=== PATIENT | female | born 1985 | race Caucasian/White ===

== ENCOUNTER 2018-05-17 15:52 | Inpatient (IN) ==
[2018-05-17] MEDS ORDERED: Melatonin 5 MG Tablet PO PRN (22:29)
[2018-05-17] MEDS ORDERED: Acetaminophen 325 MG Tablet PO PRN ×2 (22:37)
[2018-05-17] MEDS ORDERED: Aluminum/Magnesium/Simethacone Susp 30 ML UDC PO PRN (22:39)
[2018-05-18 09:55] LABS: Calcium 9.7 mg/dL (8.5-10.1); Carbon Dioxide 24.7 meq/L (21.0-32.0); Potassium 3.5 meq/L (3.5-5.1)
[2018-05-18 10:02] LABS: Chol/HDL Ratio 3.62 Ratio; HDL Cholesterol 55.7 mg/dL (40.0-60.0)
--- NOTE | 2018-05-18 14:23 | P.HPPSY ---
Provisional Diagnosis Admission Date: May 17, 2018 22:10 Anxiety disordergeneralized [place] I.: Generalized anxiety disorder Competence Certification of Person's Competence To Provide Express and Informed Consent I have personally examined Sheron Charles, a person being served at [facility] on, May 18, 2018 1323. Express and informed consent means consent voluntarily given in writing, by a competent person, after sufficient explanation and disclosure of the subject matter involved to enable the person to make a knowing and willful decision without any element of force, fraud, deceit, duress, or other form of constraint or coercion. This person is 18 years of age or older, is not now known to be incompetent to consent to treatment with a guardian advocate, and does not have a health care surrogate or proxy currently making medical treatment decisions. I have found this person to be one of the following: [] Competent to provide express and informed consent, as defined above, for voluntary admission to this facility and is competent to provide express and informed consent for treatment. He/she has the consistent capacity to make well reasoned, willful, and knowing decisions concerning his or her medical or mental health treatment. The person fully and consistently understands the purpose of the admission for examination/placement and is fully capable of personally exercising all rights assured [place] [] Incompetent to provide express and informed consent to voluntary admission, and this is incompetent to provide express and informed consent to treatment. The person must be transferred to involuntary status and a petition for a guardian advocate filed with the Circuit Court. [] Refusing to provide express and informed consent to voluntary admission but is competent to provide express and informed consent for treatment. The person must be discharged or transferred to involuntary status. Form shall be completed within 24 hours of a person's arrival at the receiving facility and filed in the clinical record of each person: 1. Admitted on a voluntary basis 2. Permitted to provide express and informed consent to his/her own treatment 3. Allowed to transfer from involuntary to voluntary status 4. Prior to permitting a person to consent to his or her own treatment after having been previously found incompetent to consent to treatment. History of Present Illness Capacity: Has capacity Chief Complaint: Severe acute anxiety and suicidal ideation and a plan History of Present Illness: HPI 32-year-old single female presents with severe acute anxiety and depressed mood with some thoughts and plan for suicide. Question of spontaneous interruption of versus other causes for an elevated beta hCG and removal of an IUD with a sonogram that does not show signs of a . Adnexa show no tumor. Patient presented to the ED and was admitted to [facility] for removal of the IUD and observation. Patient presented with complaints of chest tightness shortness of breath palpitations hot cold sweats. The patient was brought in some neck and anorectic. Problem had been present for several weeks and has been getting worse. At work the patient was promised a promotion with a shift that would allow her time with her 6-year-old son. Patient became increasingly depressed when this promotion did not allow for the shift that she was promised. She now complains that she does not trust management. The patient has been self-medicating with her mom's Cymbalta and has experienced no relief. She complains that nothing that formerly made her happy or that she enjoyed doing in the past was of interest to her. The depression has been progressive in the management of her anxiety, depressed mood, insomnia and anorexia has not improved. She claims that she told the ED that she had looked up the lethal dose of Cymbalta only because she did not want to overdose. An anxiety attack is typified by chest pain, diaphoresis, shortness of breath, palpitations increased thoughts of depression and self-harm and and anhedonia. In addition to other problems patient has concerned that her boyfriend is unwilling to make a commitment. The patient is anxious to discharge for concerned that her son misses her. With all of her recent problems she is happy that he continues doing well in school. She is concerned that if she is away from him for any protracted period of time it may affect his performance in school. Past History: Patient presents no medical problems in her past history of being on her current problems with possible . Past surgical history the patient has a cholecystectomy and and surgery to the left circumflex shoulder Patient denies any prior psychiatric history FH: Patient reports no significant family history of psychiatric or physical chronic illnesses. Denies diabetes in the family Social history: patient does occasionally smoke she does not report any drug use or alcohol use. She lives with her boyfriend and her 6-year-old son. - Inpatient Certification I certify that the inpatient services were ordered in accordance with Medicare regulations governing the order. This includes certification that hospital inpatient services are reasonable and necessary and in the case of services not specified as inpatient-only under 42 CFR 419.22(n), that they are appropriately provided as inpatient services in accordance to with the 2-midnight benchmark under 43 CFR 412.3(e) I certify that inpatient psychiatric hospital services are medically necessary. Evaluation and treatment and/or diagnostic testing are expected to improve the patient's condition. The patient needs on a daily basis, active treatment furnished directly by or requiring the supervision of inpatient psychiatric facility personnel. Review of Systems Constitutional: Reports anorexia, Reports fatigue, Reports night sweats Cardiovascular: Reports chest pain, Reports chest pain at rest, Reports excessive sweating, Reports rapid, pounding, or irregular heartbeat, Reports shortness of breath Respiratory: Reports shortness of breath Psychiatric: Reports abnormal sleep pattern, Reports anxiety, Reports change in appetite, Reports lack of enjoyment, Reports panic attacks, Reports thoughts of hurting/killing yourself PMFSH - History History Provided By: Patient - Social History I have reviewed the patient's Social History: Yes - Tobacco History Second Hand Smoke Exposure: No Tobacco Use In Past 30 Days: Yes Smoking Status: Smoker, status unknown - Alcohol History How Often Do You Have a Drink Containing Alcohol: Never - Substance Use History Substance History: No History of Abuse - Travel History History of Recent Travel: No Recent Travel in the [place] Within the Last 8 Weeks: No Recent Travel Out of the Country Within the Last 8 Weeks: No Quality Measures - Psychiatric History Psychological trauma history: Patient denies any history of abuse - Substance Abuse History Drug or alcohol use in the past 12 months: Patient denies use of alcohol or illicit substances. She does occasionally smokes tobacco - Patient Strengths Patient's strengths (minimum of 2): Patient had a a positive relationship with her son who is performing well in school. She has support from her mother and her boyfriend and is currently working Medications and Allergies Active Medications: Active Medications Acetaminophen (Tylenol) 650 mg PO Q4H PRN PRN Reason: PAIN SCALE 1 TO 5 Acetaminophen (Tylenol) 650 mg PO Q4H PRN PRN Reason: TEMP GREATER THAN 101 Al Hydrox/Mg Hydrox/Simethicone (Mag-Al Plus Susp Liq) 30 ml PO Q6H PRN PRN Reason: DYSPEPSIA Al Hydroxide/Mg Hydroxide (Milk Of Magnesia Liq) 30 ml PO DAILY PRN PRN Reason: CONSTIPATION Melatonin (Melatonin) 5 mg PO HS PRN PRN Reason: INSOMNIA Last Admin: 05/17/18 22:43 Dose: 5 mg Allergies Allergy/AdvReac Type Severity Reaction Status Date / Time No Known Allergies Allergy Unverified 05/17/18 22:32 Results - Labs CBC & Chem 7: 05/18/18 09:15 Labs: Laboratory Results - last 24 hr 05/18/18 05/18/18 09:15 09:15 Sodium 138 Potassium 3.5 Chloride 104 Carbon Dioxide 24.7 Anion Gap 9 BUN 9 Creatinine 0.90 Estimated GFR 73 L Random Glucose 110 H Calcium 9.7 Triglycerides 113 Cholesterol 202 H LDL Cholesterol, Calc 124 H HDL Cholesterol 55.7 Cholesterol/HDL Ratio 3.62 Beta HCG, Qual 11.1 H Exam Vital signs: Vital Signs 05/17/18 23:21 05/18/18 05:51 Temperature 98 F 97.7 F Pulse Rate 77 68 Respiratory Rate 18 16 Blood Pressure 132/77 110/71 Pulse Oximetry 98 100 Intake & Output 05/17/18 05/18/18 05/18/18 18:59 06:59 18:59 Intake Total 480 / 480 Balance 480 / 480 Weight 65.3 kg Intake: Oral 480 / 480 Other: Weight On Admission 65.3 kg Narrative: Patient had a physical examination at [facility] prior to transfer which showed no significant contributory physical contributions to the present illness. Patient shows no signs of neurological deficit. Aims score is 0. - Constitutional severe distress - Routine HEENT Exam Head: Present: normocephalic Eye: Present: PERRL Assessment and Plan - Assessment (1) Generalized anxiety disorder with panic attacks Code(s): F41.1 - Generalized anxiety disorder; F41.0 - Panic disorder [episodic paroxysmal anxiety] Status: Acute - Plan Plan: Estimated LOS: [] days 3-4 days Justification for Continued Inpatient Stay: Questionable with elevated beta hCG in the presence of an IUD removed at [facility]. Patient is experiencing anxiety with some suicidal thoughts. Patient is experiencing chest pain chest tightness shortness of breath palpitations hot and cold sweats. Patient also has not eaten in several days and getting little sleep. Discharge Planning: There is need for clarification of whether or not the patient has had an interrupted due to the IUD. For this we will consult [employer] ADJUSTMENT SUPERVISOR additionally the patient mood is depressed with some preoccupation with the lethal dose of the medication (Cymbalta) that she has been using without physicians ordering. The medication belonged to her mother. - Attending Attestation Patient will require inpatient hospitalizations for safety and clarification of the organic issues contributing to her increased depression and anxiety.
[2018-05-18 15:54] LABS: Hemoglobin A1c 5.1 % (4.3-6.0)
[2018-05-18] MEDS ORDERED: Melatonin 5 MG Tablet PO PRN (20:33)
[2018-05-18] MEDS ORDERED: Acetaminophen 325 MG Tablet PO PRN (20:34)
[2018-05-18] MEDS ORDERED: Aluminum/Magnesium/Simethacone Susp 30 ML UDC PO PRN (20:34)
[2018-05-19 05:49] VITALS: BP 101/54; PULSE 70; RESP 16; TEMP 98.1; O2SAT 98
--- NOTE | 2018-05-19 13:57 | P.DSPSY ---
Psychiatry Discharge Summary Inpatient Psychiatric care?: Yes Advance Directives: No Mental Health Advance Directive: No Health Care Proxy: No - Admission Admission Date: May 17, 2018 22:10 Diagnosis specificity: Generalized anxiety disorder Brief History: HPI 32-year-old single female presents with severe acute anxiety and depressed mood with some thoughts and plan for suicide. Question of spontaneous interruption of versus other causes for an elevated beta hCG and removal of an IUD with a sonogram that does not show signs of a . Adnexa show no tumor. Patient presented to the ED and was admitted to [facility] for removal of the IUD and observation. Patient presented with complaints of chest tightness shortness of breath palpitations hot cold sweats. The patient was brought in some neck and anorectic. Problem had been present for several weeks and has been getting worse. At work the patient was promised a promotion with a shift that would allow her time with her 6-year-old son. Patient became increasingly depressed when this promotion did not allow for the shift that she was promised. She now complains that she does not trust management. The patient has been self-medicating with her mom's Cymbalta and has experienced no relief. She complains that nothing that formerly made her happy or that she enjoyed doing in the past was of interest to her. The depression has been progressive in the management of her anxiety, depressed mood, insomnia and anorexia has not improved. She claims that she told the ED that she had looked up the lethal dose of Cymbalta only because she did not want to overdose. An anxiety attack is typified by chest pain, diaphoresis, shortness of breath, palpitations increased thoughts of depression and self-harm and and anhedonia. In addition to other problems patient has concerned that her boyfriend is unwilling to make a commitment. The patient is anxious to discharge for concerned that her son misses her. With all of her recent problems she is happy that he continues doing well in school. She is concerned that if she is away from him for any protracted period of time it may affect his performance in school. Past History: Patient presents no medical problems in her past history of being on her current problems with possible . Past surgical history the patient has a cholecystectomy and and surgery to the left circumflex shoulder Patient denies any prior psychiatric history FH: Patient reports no significant family history of psychiatric or physical chronic illnesses. Denies diabetes in the family Social history: patient does occasionally smoke she does not report any drug use or alcohol use. She lives with her boyfriend and her 6-year-old son. Tobacco Use In Past 30 Days: No How Often Do You Have a Drink Containing Alcohol: Never Hospital Course: Patient was admitted on transfer from [facility] in [place]. There was concerned that the patient is having thoughts of suicide, because she had looked up the lethal dose of Cymbalta. She obtained a Cymbalta from her mother thought it might help her with her increasing depressed mood. On the unit the patient engage in all active activities and was seen the day of admission and on the day of discharge. Patient remained somewhat tearful when talking about her concern about her and the possibility of having had a spontaneous . The patient was not started on an antidepressant because of the brevity of her period of observation and the expectations patient would follow-up with outpatient psychiatrist as well as BOTTOM FILLER. The patient's laboratory results showed an elevated beta hCG of 11.1. It is recommended patient seek outpatient counseling as well as medication management and obtain BOTTOM FILLER consult to determine the presence or absence of implantation or a spontaneous second dairy to presence of an IUD. The IUD had been removed at [facility], but pathology to identify possible tissue was not done. Sonogram failed to show evidence of the . - Discharge Discharge Date: 05/19/18 - Discharge Diagnosis (1) Generalized anxiety disorder with panic attacks Code(s): F41.1 - Generalized anxiety disorder; F41.0 - Panic disorder [episodic paroxysmal anxiety] Status: Acute Discharge Disposition: Home - Discharge Instructions Discharge Diet: Regular Diet Activities You Can Perform: Regular- No Restrictions - Discharge Time > 30 minutes (recommend vigorous physical activity) Mental Status Examination Appearance: Appropriate Consciousness: Alert Orientation: x4 Motor Activity: Normal gait Speech: Unremarkable Language: Adequate Fund of Knowledge: Adequate Attention and Concentration: Adequate Memory: Unremarkable Mood: Appropriate Affect: Appropriate Thought Process & Associations: Intact Thought Content: Appropriate Hallucination Type: None Delusion Type: None Suicidal Ideation: No Suicidal Plan: No Suicidal Intention: No Homicidal Ideation: No Homicidal Plan: No Homicidal Intention: No Insight: Adequate Judgment: Adequate Discharge/Advance Care Plan Your Health Problems Are: Anxiety - Results Vital Signs: Last Vital Signs Temp 98.1 F 05/19/18 05:48 Pulse 70 05/19/18 05:48 Resp 16 05/19/18 05:48 BP 101/54 L 05/19/18 05:48 Pulse Ox 98 05/19/18 05:48 Lab Results: Abnormal Lab Results 05/18/18 09:15 Hemoglobin A1c 5.1 Laboratory Results Hemoglobin A1c 5.1 % (4.3-6.0) 05/18/18 09:15 Triglycerides 113 mg/dL (42-150) 05/18/18 09:15 Cholesterol 202 mg/dL (120-200) H 05/18/18 09:15 LDL Cholesterol, Calc 124 mg/dL (0-99) H 05/18/18 09:15 HDL Cholesterol 55.7 mg/dL (40.0-60.0) 05/18/18 09:15 Summary of Procedures: None Pending Results: None - Medications Number of antipsychotic medications at discharge: 0 - Discharge Care Plan Goals to Promote Your Health: * To prevent worsening of your condition and complications * To maintain your health at the optimal level Directions to Meet Your Goals: Take your medications as prescribed Follow your dietary instruction Follow activity as directed Keep your appointments as scheduled Take your immunizations and boosters as scheduled If your symptoms worsen call your PCP, if no PCP go to Urgent Care Center or Emergency Room For 29/12 questions related to your inpatient stay or results of tests pending at discharge, please contact Dr. Kendall Herrera MD at Smoking is Dangerous to Your Health. Avoid second hand smoking
== END 2018-05-19 13:15 | disposition home or self-care (01) ==
LOC: H260 22:10 → UNDODISIN 05-18 14:55
PROVIDERS: ADMIT Psychiatry & Neurology Child & Adolescent Psychiatry; ATTEND Psychiatry & Neurology Child & Adolescent Psychiatry